=== PATIENT | female | born 1980 | race Caucasian/White ===

== ENCOUNTER 2017-09-07 16:19 | Emergency (ER) | payer OTHER ==
[2017-09-07 16:19] VITALS: BMI 24.3
[2017-09-07 16:42] VITALS: BP 112/79; PULSE 80; RESP 18; TEMP 98.2; O2SAT 100
--- NOTE | 2017-09-07 17:17 | C.PDOC ---
History Of Present Illness 37 year old female with no medical problems presents to the ED c/o sudden onset rash to the axilla, groin and neck area paced where the edges of her clothes will touch. Patient states the last 2 times she washed her clothes in a new detergent. Patient rates her pain at 6/10. Patient denies fever, chills, nausea , vomit, SOB. Time Seen by Provider: 09/07/17 16:26 Chief Complaint (Nursing): Allergic Reaction History Per: Patient History/Exam Limitations: no limitations Onset/Duration Of Symptoms: Sudden Onset Current Symptoms Are (Timing): Still Present Possible Cause: Other (new detergent) Associated Symptoms: Skin Rash, Itching Home/EMS Treatment: None Pain Scale Rating Of: 6 Recent travel outside of the [place]: No Additional History Per: Patient Past Medical History Reviewed: Historical Data, Nursing Documentation, Vital Signs Vital Signs: Last Vital Signs Temp 98.2 F 09/07/17 16:25 Pulse 80 09/07/17 16:25 Resp 18 09/07/17 16:25 BP 112/79 09/07/17 16:25 Pulse Ox 100 09/07/17 17:24 - Medical History PMH: No Chronic Diseases Surgical History: No Surg Hx Family History: States: Unknown Family Hx - Social History Hx Tobacco Use: No Hx Alcohol Use: No Hx Substance Use: No - Immunization History Hx Tetanus Toxoid Vaccination: No Hx Influenza Vaccination: No Hx Pneumococcal Vaccination: No Review Of Systems Constitutional: Negative for: Fever, Chills ENT: Negative for: Throat Pain, Throat Swelling Respiratory: Negative for: Cough, Shortness of Breath Gastrointestinal: Negative for: Nausea, Vomiting Skin: Positive for: Rash Neurological: Negative for: Headache, Dizziness Physical Exam - Physical Exam Appears: Non-toxic, No Acute Distress Skin: Normal Color, Warm, Dry, Rash (puritic, bright red skintones to the axilla , groin and neck areas hives) Head: Atraumatic, Normacephalic Eye(s): bilateral: Normal Inspection Nose: No Discharge Oral Mucosa: Moist Tongue: No Swelling Lips: No Swelling Throat: Normal, No Erythema, No Exudate Neck: Normal ROM, Supple Respiratory: Normal Breath Sounds, No Rales, No Rhonchi, No Wheezing Extremity: Normal ROM, No Tenderness, Capillary Refill (< 2 seconds), No Swelling Neurological/Psych: Oriented x3, Normal Speech Gait: Steady ED Course And Treatment O2 Sat by Pulse Oximetry: 100 (ON RA) Pulse Ox Interpretation: Normal Medical Decision Making Medical Decision Making: Impression: puritic rash, hives to neck, axilla and groin area Plan: * Benadryl 50 mg PO * Pepcid 40 mg PO * Prednisone 60 mg PO Disposition Counseled Patient/Family Regarding: Diagnosis, Need For Followup, Rx Given - Disposition Disposition Time: 17:18 Prescriptions: DiphenhydrAMINE [Benadryl] 50 mg PO HS #4 cap Famotidine [Pepcid] 2 tab PO HS #8 tab Prednisone [Deltasone] 60 mg PO DAILY #12 tablet Instructions: Hives (DC) Forms: [facility] (Syri[place]), General Discharge Instructions - Clinical Impression Clinical Impression: Allergic urticaria - Scribe Statement The provider has reviewed the documentation as recorded by the Scribe Hilario Church All medical record entries made by the Scribe were at my direction and personally dictated by me. I have reviewed the chart and agree that the record accurately reflects my personal performance of the history, physical exam, medical decision making, and the department course for this patient. I have also personally directed, reviewed, and agree with the discharge instructions and disposition.
== END 2017-09-07 17:37 | disposition home or self-care (01) ==
LOC: C.ER 16:19
DX: L50.0 Allergic urticaria (principal)